=== PATIENT | male | born 1955 | race Caucasian/White ===

== ENCOUNTER → 2017-07-13 14:18 | Outpatient (CLI) | payer OTHER, SELFPAY ==
--- NOTE | 2017-07-13 14:23 | US_ITS ---
STUDY: RENAL ULTRASOUND - COMPLETE REASON FOR EXAM: Male, 61 years old. Frequency TECHNIQUE: Ultrasound evaluation of the kidneys was performed with real-time and static waller-scale imaging. COMPARISON: None. FINDINGS: RIGHT KIDNEY: Normal location of the right kidney, which is normal in size. The right kidney measures 10.6 x 4.8 x 5.1 cm. There is a normal cortex of the right kidney. The renal cortex measures 1.6 cm. There is no right renal mass or cyst. On image #29 there is suggestion of possible calcification measuring 2.6 mm allowing for artifact. There is no right hydronephrosis. DISTAL RIGHT URETER: There is non-visualization of the distal right ureter. There is no demonstrated right ureterovesical junction calculus. There is a visualized right ureteral jet. LEFT KIDNEY: Normal location of the left kidney, which is normal in size. The left kidney measures 11.1 x 4.8 x 5.7 cm. There is a normal cortex of the left kidney. The renal cortex measures 1.8 cm. There is no left renal mass or cyst. There are no left renal calculi. There is no left hydronephrosis. DISTAL LEFT URETER: There is non-visualization of the distal left ureter. There is no demonstrated left ureterovesical junction calculus. There is a visualized left ureteral jet. BLADDER: The distended urinary bladder has a volume of 42 ml. The empty urinary bladder has a volume of ml. There is a normal wall thickness of the distended urinary bladder. There is no demonstrated mass within the urinary bladder. There are no demonstrated bladder calculi. US/Kidney and Bladder IMPRESSION: Normal normal renal ultrasound with the exception of possible punctate stone right kidney without evidence of hydronephrosis. Recommend correlation with any renal colic. Electronically Signed: Hannah Tripathi MD at 17:57 EDT Tel , Service support ,
== END ==
PROVIDERS: Family Provider Internal Medicine; PCP Internal Medicine; Visit Provider Nurse Practitioner
DX: R35.0 Frequency of micturition (principal)
CPT/HCPCS: 76770

== ENCOUNTER → 2019-02-11 | Outpatient (CLI) | payer OTHER, SELFPAY ==
--- NOTE | 2019-02-11 07:09 | CT_ITS ---
STUDY: CT BRAIN AND SINUSES WITHOUT CONTRAST REASON FOR EXAM: Male, 63 years old. Chronic sinusitis. Hypertension. RADIATION DOSAGE (If Supplied By Facility): CTDIvol = ( 33.06 ) mGy, DLP = ( 751.21 ) mGycm TECHNIQUE: Transaxial CT imaging of the brain was performed without administration of contrast. Individualized dose optimization techniques were used for this CT. COMPARISON: No relevant priors. FINDINGS: CT BRAIN: The posterior aspect is excluded from the exam Normal soft tissue structures. Normal calvarium. There is bilateral mastoid opacification.. There is mild cerebral atrophy with widening of the extra-axial spaces and ventricular dilatation. Normal white matter tracts of the cerebral hemispheres. There are lacunar infarcts or dilated perivascular spaces of the basal ganglia. Normal brainstem. Normal cerebellum. There is no intracranial hemorrhage. There are no findings of an acute ischemic infarction. CT SINUSES Post Surgical Changes: None. Frontal Sinus and Recess: Mucosal thickening of the frontal sinuses extending to the frontal recesses. Ethmoidal Sinuses: Moderate mucosal thickening Maxillary Sinuses: Moderate mucosal thickening Ostiomeatal Complex: There is narrowing at the hiatus semilunaris and ostiomeatal on the right. There is opacification of the ostium, infundibulum, and hiatus semilunaris on the left. Sphenoid Sinus: Mild mucosal thickening Sphenoethmoidal Recess: Clear. Nasal Turbinate (Right): Middle Turbinate (Right): Normal. Middle Turbinate (Left): Normal. Inferior Turbinate (Right): Hypertrophy of the right inferior nasal turbinate. Inferior Turbinate (Left): Hypertrophy of the left inferior nasal turbinate. Nasal Septum: Left sided nasal septal deviation but without a nasal septal spur. Nasal Airway: There is narrowing. Cribriform Plate / Anterior Cranial Fossa: Normal. Orbits: Normal. CT/Sinus/Facial Bone IMPRESSION: Chronic involutional changes of the brain. Pansinusitis. Opacification of the left ostiomeatal unit. Narrowing of the right ostiomeatal unit. Nasal septal deviation. Mucosal hypertrophy of the turbinates narrowing the nasal air passageway. Electronically Signed: Sinan Rodriguez MD at 8:17 EDT , Service support ,
== END | disposition home or self-care (01) ==
LOC: CT 07:07
PROVIDERS: Family Provider Internal Medicine; PCP Internal Medicine; Referring Provider Otolaryngology; Visit Provider Otolaryngology
DX: J32.9 Chronic sinusitis, unspecified (principal)
CPT/HCPCS: 70486